=== PATIENT | male | born 1940 ===

== ENCOUNTER 2020-06-08 08:15 | Observation (INO) ==
--- NOTE | 2020-05-10 10:25 | Anesthesiology Consultation ---
Date of Service May 10, 2020 Assessment & Plan (1) Encounter for pre-operative examination: COVID Status: As of 05/10 assessment, patient denies travel to endemic area, known exposure/sick contacts, or symptoms of COVID19. Patient instructed that they and their household members must follow strict social distancing guidelines, wear a mask in public and avoid travel/events/gatherings for 14 days prior to surgery. Preoperative COVID19 testing to be completed prior to surgery per surgeon's arrangements (06/02). Patient made aware to self-isolate as much as possible between COVID testing and surgery. Patient is fully vaccinated. Chart Review Chart Review: Acceptable Risk for Surgery and Patient seen in Pre Admission Testing Teaching & Discussion Instructed NPO after midnight before surgery, except medications with 15 cc of water. Medication instructions provided according to the PAT guidelines. History Surgery Operation Date: 06/08/20 07:00 Proposed Procedures p Right Knee Arthroplasty Uni Compartment Versus - Ramana Meza MD s Total Knee Arthroplasty - Ramana Meza MD Height/Weight Height: 5 ft 11 in Weight: 81.8 kg Allergies Allergy/AdvReac Type Severity Reaction Status Date / Time No Known Allergies Allergy Verified 04/26/20 12:44 Medications Home Medications Medication Instructions Recorded Confirmed Last Taken No Known Home Medications 09/17/19 04/26/20 Unknown Past Medical History Medical History (Updated 05/10/20 @ 10:35 by Rj Richardson) BPH (benign prostatic hyperplasia) Right knee DJD Tremor B/L hands Exercise / Class Metabolic Activity III < 4 Walking/Shop/Light housework (Limited by knee pain, denies CP or SOB with ambulation) Past Family History Family History Other Parkinson disease Past Surgical History Surgical History History of prostate surgery TURP Hx of hernia repair Past Anesthesia History No Hx of Anesthesia Complications and No Family Hx of Anesthesia Complications History of PONV No Hx of PONV and No Hx of Motion Sickness Social History Smoking Status: Never smoker Do You Dip or Chew Tobacco: No Hx Alcohol Use: Yes Alcohol type: beer alcohol intake frequency: a few times a month Hx Substance Use: No substance use type: does not use Review of Systems Pt denies any recent chest pain, shortness of breath, palpitations, cough, fever, URI. +occasional GERD Physical Exam Vital Signs BP: 163/83. Pt reports anxiety. P: 69bpm SPO2: 96% RA T: 98.1 F R: 12 ENMT Mouth: + dentures (partial upper); no chipped teeth and no loose teeth Thyromental Distance: > or= 3.5 Finger Breadths Mallampati Class: II Neck normal visual inspection; neck extension not limited Respiratory normal respiratory effort, lungs clear to auscultation Cardiovascular RRR, no murmur, no edema Vessels: no carotid bruit Musculoskeletal R knee in brace Neurologic Motor/Sensory: + tremor (B/L hands) Testing Laboratory Results 05/10/20 10:40 05/10/20 10:40 PT 10.4 Seconds (9.0-12.0) 05/10/20 10:40 INR 1.0 (0.9-1.1) 05/10/20 10:40 APTT 27.6 Seconds (21.0-31.0) 05/10/20 10:40 Blood Type O Positive 05/10/20 10:40 Antibody Screen NEGATIVE 05/10/20 10:40 Electrocardiogram Date: 05/10/20 Findings: + SB @ (59bpm) Voltage criteria for LVH. Chest X-Ray Date: 05/10/20 Findings: + NAD Stress Test Date: 01/23/18 Type: DSE No chest pain. Normal hemodynamics with dobutamine. EKG at rest normal. EKG during dobutamine infusion, no ST depression or elevation. Normal wall motion at rest with improved contractility during dobutamine infusion and normal wall motion during recovery. Impression: Dobutamine stress echo negative for ischemia or infarction.
[2020-05-10 11:02] LABS: Basophils # (auto) 0.03 K/uL (0-0.2); Basophils % (auto) 0.4 %; Eosinophils # (auto) 0.12 K/uL (0-0.5); Eosinophils % (auto) 1.7 %; Hematocrit (blood only) 45.1 % (42-52); Hemoglobin 15.2 g/dL (14.0-18.0); Immature Granulocytes # (auto) 0.01 K/uL (0.00-0.02); Immature Granulocytes % (auto) 0.1 %; Lymphocytes # (auto) 1.55 K/uL (1.2-3.4); Lymphocytes % (auto) 21.6 %; Mean Corpuscular Hemoglobin 30.5 pg (25-34); Mean Corpuscular Hgb Conc 33.7 g/dL (32-36); Mean Corpuscular Volume 90.4 fL (80-100); Monocytes # (auto) 0.87 K/uL (0.11-0.59); Monocytes % (auto) 12.1 %; Neutrophils % (auto) 64.1 %; Platelet Count 251 K/uL (130-400); RDW Coefficient of Variation 13.1 % (11.5-14.5); Red Blood Count 4.99 M/uL (4.7-6.1); White Blood Count 7.18 K/uL (4.8-10.8)
[2020-05-10 11:23] LABS: Partial Thromboplastin Time 27.6 Seconds (21.0-31.0); Prothrombin Time 10.4 Seconds (9.0-12.0)
--- NOTE | 2020-05-10 11:30 | XRay Report ---
XR chest Pre-admission PA/Lat CLINICAL HISTORY: Preoperative evaluation. COMPARISON STUDY: No previous studies for comparison. FINDINGS: Lung volumes are normal. Lungs are clear. There is no pneumothorax or pleural effusion. Car diac size is normal. Mediastinal contours are normal. There is no evidence for pulmonary edema. IMPRESSION: No acute cardiopulmonary findings. ACT 112: Negative or not required by law. Electronically signed by: Blair Haddad M.D. 05/10/2020 11:29 AM
[2020-05-10 11:33] LABS: BUN Creatinine Ratio 26.1 (10-20); Calcium 9.1 mg/dl (8.5-10.1); Creatinine Clr Calc Pharmacy 67.2 ml/min; Est GFR (African American) 87.9; Est GFR (Non-African American) 75.8; Potassium 4.4 mmol/L (3.5-5.1)
--- NOTE | 2020-05-11 06:24 | Electrocardiogram Report ---
Test Reason : Blood Pressure : / mmHG Vent. Rate : 059 BPM Atrial Rate : 059 BPM P-R Int : 176 ms QRS Dur : 096 ms QT Int : 422 ms P-R-T Axes : 074 079 071 degrees QTc Int : 417 ms Sinus bradycardia Voltage criteria for left ventricular hypertrophy Abnormal ECG No previous ECGs available Confirmed by Boo Null ([id number]) on 05/11/2020 6:24:32 AM Referred By: Ramana Meza Confirmed By:Boo Null
--- NOTE | 2020-06-03 21:28 | History and Physical Report ---
DATE OF ADMISSION: 06/08/2020 CHIEF COMPLAINT: Right medial knee pain. HISTORY OF PRESENT ILLNESS: The patient is an 80-year-old gentleman from [place] who presents for treatment of his right knee. He has got about a 9-10 year history of right medial-sided knee pain that has gotten worse over time. He relates as a result of an injury back in 2011 with a twisting episode. He has had some injections, which some helped and some did not. Steroid shots helped a little bit. The gel shot did not help at all. He has been through therapy without much improvement. Pain is all medial. He cannot walk any significant distance due to the pain. No groin pain. He would like to have his knee fixed. PAST MEDICAL HISTORY: 1. Arthritis. 2. BPH. PAST SURGICAL HISTORY: Includes, 1. Prostate surgery. 2. Herniorrhaphy. ALLERGIES: None. CURRENT MEDICATIONS: None. SOCIAL HISTORY: An 80-year-old male. He is . Lives in [place]. Does not smoke. Two drinks per week. FAMILY HISTORY: Noncontributory. REVIEW OF SYSTEMS: Negative for diabetes, neurologic problem, vascular problem, bleeding disorders. No groin pain. No fevers, no weight loss. No history of DVT or PE. PHYSICAL EXAMINATION: GENERAL: Shows a pleasant, tall middle-aged male. HEENT: Benign. NECK: Supple, no lymphadenopathy. LUNGS: Clear to auscultation. HEART: Has a regular rate and rhythm. ABDOMEN: Soft, nontender, nondistended. EXTREMITIES: Grossly neurovascularly intact except as follows: Examination of the right knee reveals the patient ambulates independently. He limps a little bit on the right leg. Walks a little bit with a shuffling gait. He has got slight varus alignment. He is tender over the medial joint line. Small knee effusion. Range of motion is 0-125. I do not detect any instability. Radha's negative. No pain with hip motion. X-RAYS: X-rays of the right knee were reviewed. It shows advanced right knee medial compartment DJD. He has got near complete loss of his medial joint space. With valgus stressing, the medial compartment opens up. ASSESSMENT: An 80-year-old male with advanced right knee medial compartment degenerative joint disease of 9 years' duration. He has failed conservative treatment. Pain is limiting him and he would like to have his knee fixed. PLAN: We talked about treatment. Based on his symptoms and exam and his x-rays, he is a good candidate for partial knee replacement. We will plan on proceeding with a partial knee replacement. If we get in there, it is too bad, we will do a full knee replacement. The risks and benefits of this procedure were explained to the patient including but not limited to DVT, PE, , infection, neurological injury, vascular injury, bleeding problem, pain, limited range of motion, stiffness, failure to relieve his symptoms, incomplete relief of symptoms, need for further surgery in the future, dislocation, and need for revision surgery. The patient understands and desires to proceed. Informed consent was obtained. As far as discharge plans, he is hoping to be discharged to home using [facility] home health program.
[~2020-06-08 08:15] MED LIST: ACETAMINOPHEN 500 MG TAB PO SCH; BUPIVACAINE 0.5 % 5 MG/1 ML PF 10ML VIAL ONE; BUPIVACAINE LIPOSOME/PF 266 MG, BUPIVACAINE/EPINEPHRINE 50 ML, SODIUM CHLORIDE 0.9% 30 ... INFIL SCH; EPINEPHrine INJ 1 MG/ML AMP ONE; FAMOTIDINE 20 MG TAB PO SCH; GABAPENTIN 300 MG CAP PO SCH; LR 500ML BOLUS, THEN 15ML/HR IV SCH; LR 60ML/HR IV SCH; METOCLOPRAMIDE HCL 10 MG TABLET PO SCH; ROPIVACAINE 0.5% 5 MG/ML 30 ML VIAL ONE; TRANEXAMIC ACID 1,000 MG **IV Intra-op IV SCH; ceFAZolin 2000MG 2,000 MG/15 ML SYR IV SCH
--- NOTE | 2020-06-08 09:04 | History & Physical Bridge Note ---
Date of Service June 08, 2020 History & Physical Bridge Note I have examined the patient, reviewed the History & Physical and in the interval since the performance of the History & Physical I have noted the following changes of clinical significance: no changes noted
[2020-06-08] MEDS ORDERED: fentaNYL citrate 100 MCG/2 ML VIAL ONE (09:58)
[2020-06-08] MEDS ORDERED: PROPOFOL IV EMULSION 10 MG/ML 20 ML VIAL IV ONE ×2 (09:58→12:57)
[2020-06-08] MEDS ORDERED: ONDANSETRON INJ 2 MG/ML 2 ML VIAL ONE (09:58)
[2020-06-08] MEDS ORDERED: MIDAZOLAM HCL 1 MG/ML 2ML VIAL ONE (09:58)
[2020-06-08] MEDS ORDERED: LIDOCAINE HCL 2% 2 ML VIAL/AMP(20MG/ML) INFIL ONE (09:58)
[2020-06-08] MEDS ORDERED: SODIUM CHLORIDE 0.9% PF 50 ML VIAL ONE (11:05)
[2020-06-08] MEDS ORDERED: BUPIVACAINE LIPOSOME 1.3% 266 MG/20 ML VIAL ONE (11:05)
[2020-06-08] MEDS ORDERED: BACITRACIN INJ 50,000 UNIT VIAL ONE (11:05)
[2020-06-08] MEDS ORDERED: BUPIVACAINE 0.25% 30 ML VIAL ONE (11:06)
[2020-06-08] MEDS ORDERED: EPINEPHrine INJ 1 MG/ML AMP ONE (11:06)
[2020-06-08] MEDS ORDERED: ePHEDrine sulfate 50 MG/ML AMP IV PRN (11:34)
[2020-06-08] MEDS ORDERED: ATROPINE SULFATE 0.1 MG/ML 10ML SYR IV PRN (11:34)
--- NOTE | 2020-06-08 13:39 | Operative Report ---
Post Operative Report Pre & Post Diagnosis Operation Date: 06/08/20 10:40 Pre-Op Diagnosis: Right Knee Degenerative Joint Disease; Knee Pain Post-Op Diagnosis: Right Knee Degenerative Joint Disease; Knee Pain I identified the patient and participated in the time-out.: Yes Procedure Operation Date: 06/08/20 10:40 Actual Procedures p Right Knee Uni Compartment Arthroplasty, Cemented(Right) - Ramana Meza MD Surgeon Ramana Meza MD Learning Support Specialist LUCÍA Jenkins Estimated Blood Loss 25 Findings Consistent with Post-Op Diagnosis Operative findings revealed extensive grade 4 [id number] disease the medial femoral condyle medial tibial plateau. Fairly minimal degenerative changes elsewhere. Moderate-sized joint effusion. Slight varus deformity to his knee. He had osteophytes of the medial femoral condyle. Fluids 1000 cc Specimens Right knee sent for pathology. Drains None. Anesthesia Type Spinal MAC Complications none Disposition Accompanied Patient To Recovery: No Disposition: Recovery Room Indications Patient is an 80-year-old gentleman whose had a several year history of increasing right knee pain discomfort become less responsive conservative care. X-rays reveal advanced medial compartment arthritis. Symptoms localized to the medial side of his knee. This was consistent with his x-rays. He elected proceed with surgical treatment. Considering his age and pain pattern and x- rays, I felt a partial knee replacement was most appropriate for this patient. Description of Procedure Operative implants consist of: 1. Biomet Villanueva size large femoral component. 2. Biomet Villanueva size D right tibial tray. 3. 4 mm mobile-bearing polyethylene insert. The patient was taken the operating room, identified, and placed in the operating table supine position protectors were properly padded. IV antibiotics brought by anesthesia team. A spinal anesthetic and abductor canal block had provided holding area. A Glasgow catheter was placed in sterile fashion a right thigh turn was then placed in the right lower extremities and prepped draped in usual sterile fashion. The right leg was elevated exsanguinated with use of an Esmarch and tourniquet placed at 300 mmHg. An anterior approach to the right knee was then performed through a longitudinal incision beginning at the superior medial pole the patella and extending just medial to the tibial tubercle. Sharp dissection was carried through subcutaneous tissue down the extensor mechanism. A medial parapatellar arthrotomy incision was made. Some subperiosteal dissection was carried out medially. The fat pad was resected. I then examined the knee. The ACL was intact. I did remove some osteophytes from the intercondylar eminence area. I examined the lateral and patellofemoral compartments and they were quite well preserved. We elected proceed with a partial knee replacement. The femur was sized to a size large. The spoon was placed. The tibial external alignment jig was then placed and attached to the size large femoral spoon. The tibial cutting guide was pinned in place. The proximal tibial cut was made. Tibia was sized to a size D. Attention drawn the femur. The distal femur was then with a sharp drill. The IM silvano was placed. The femoral template was placed and attached to the IM silvano. The holes were drilled word drilled for the femoral component. Posterior cutting guide was placed and posterior cut was made. The 0 spigot was placed in the distal femur was milled. The medial meniscus was excised. I then trialed the knee and the 4 feeler gauge fit appropriate in both flexion and extension. We did not need to do any further milling of the femur. The femoral posterior osteophyte guiding with guide was placed in the posterior osteophyte was removed. The anterior femur was milled for the anterior flange of the femoral component. The posterior osteophyte was then removed. The cement drill was used to create holes in the distal femur for cement interdigitation. The tibial tray was pinned in place and the toothbrush blade saw was used to prepare the proximal tibia for the tibial component. We then irrigated the knee. We then trialed the knee in the forefoot implant fit appropriately in flexion extension. We elect to place these implants. A single batch of Palacos G cement was mixed. I irrigated the wound extensively and dried it. A size right medial D tibial tray was cemented in position foll owed by a large femoral component. A 4 feeler gauge was placed the knee was brought out into 30 degrees short of extension. All extraneous cement was removed. Once cement was hardened we trialed the knee again and the 4 implants appropriately. The for implant was placed. Tracked nicely. The knee felt well balanced. Attention drawn toward closing. The wound was irrigated with copious amounts of pulsatile lavage solution. I did inject locally with 100 cc of combination of 20 cc of Exparel, 30 cc normal saline, 50 cc of quarter percent Marcaine with epinephrine. Patient did receive 1 g tranexamic acid. The tourniquet was then let down for tourniquet time was 64 minutes. Hemostasis assured use electrocautery. I irrigated the wound again. The extensor mechanism closed with #1 Vicryl suture in a [id number] fashion. The extensor mechanism checked and found to be intact and the subcutaneous tissue then closed with 2 Dexon suture buried nerve fascia skin was closed skin blade. Leg was then cleaned and dried a sterile dressing composed Xeroform, 4 x 4's, sterile cast padding, Samy bandage were applied. Patient then transferred to the recovery room in stable condition. Patient tolerated procedure well and there were no complications. Felice Jenkins, my physician medicine assistant, was present for the entire procedure. His assistance was essential and required for appropriate patient positioning, prepping and draping, surgical exposure, performing the technical details of the operation, placement the implants, closure of the wound, and placement of the sterile bandage. I attest to the content of the Intraoperative Record and any orders documented therein. Any exceptions are noted below.
--- NOTE | 2020-06-08 13:52 | XRay Report ---
RIGHT KNEE 2 VIEWS History: Right knee unicondylar prosthesis. Degenerative arthritis. Postop. FINDINGS: The patient is status post right medial unicondylar prosthesis. The hardware is intact. No fracture or dislocation. Skin blade are in place. IMPRESSION: Right knee medial unicondylar prosthesis. No evidence for hardware complication. ACT 112: Negative or not required by law. Electronically signed by: Aren Elizabeth M.D. 06/08/2020 1:51 PM
--- NOTE | 2020-06-08 14:04 | Anesthesiology Progress Note ---
Date of Service June 08, 2020 Anesthesia Post Procedure Vital Signs Vital Signs: Temp Pulse Pulse Resp BP BP Pulse Ox 06/08/20 13:55 60 14 142/60 H 95 06/08/20 13:45 63 16 134/74 98 06/08/20 13:35 61 15 113/73 97 06/08/20 13:26 36.1 C L 66 16 141/73 H 99 06/08/20 08:55 36.5 C 70 20 172/96 H 94 Transfer of Care Handoff Completed per policy Notes Mental Status: alert / awake / arousable Patient Amnestic to Procedure: Yes Nausea / Vomiting: adequately controlled Pain: adequately controlled Airway Patency, RR, SpO2: stable & adequate BP & HR: stable & adequate Hydration State: stable & adequate Neuraxial Anesthesia: was administered and sensory block is resolving Anesthetic Complications: no major complications apparent
[2020-06-08] MEDS ORDERED: ALUMINUM/MAGNESIUM SUSP 30 ML UDC PO PRN (15:21)
[2020-06-08] MEDS ORDERED: TAMSULOSIN HCL 0.4 MG CAP PO PRN (15:21)
[2020-06-08] MEDS ORDERED: MAGNESIUM HYDROXIDE SUSP 30 ML UDC PO PRN (15:21)
[2020-06-08] MEDS ORDERED: HYDROmorphone INJ 0.5 MG/0.5 ML SYR IV PRN (15:21)
[2020-06-08] MEDS ORDERED: METOCLOPRAMIDE HCL INJ 5 MG/ML 2 ML VIAL IV PRN (15:21)
[2020-06-08] MEDS ORDERED: NALOXONE HCL 0.4 MG/1 ML VIAL/CARP IV PRN (15:21)
[2020-06-08] MEDS ORDERED: bisacodyL 10 MG SUPP PR PRN (15:21)
[2020-06-08] MEDS ORDERED: ONDANSETRON INJ 2 MG/ML 2 ML VIAL IV PRN (15:21)
[2020-06-08] MEDS ORDERED: traMADol HCL 50 MG TABLET PO PRN (15:21)
[2020-06-08] MEDS: SODIUM CHLORIDE 0.9% 1000ML 1,000 ML IV SCH (16:10)
[2020-06-08] MEDS: ACETAMINOPHEN 500 MG TAB PO SCH (18:15)
[2020-06-08] MEDS: KETOROLAC TROMETHAMINE 15 MG/ML VIAL IV SCH ×2 (18:16→23:11)
[2020-06-08] MEDS: DOCUSATE SODIUM 100 MG CAP PO SCH (20:21)
[2020-06-08] MEDS: ceFAZolin 2000MG 2,000 MG/15 ML SYR IV SCH (20:21)
[2020-06-08] MEDS: SENNA 8.6 MG TAB PO SCH (20:22)
[2020-06-08] MEDS: ASPIRIN 81 MG ECTAB PO SCH (20:22)
[2020-06-09] MEDS: SODIUM CHLORIDE 0.9% 1000ML 1,000 ML IV SCH (01:31)
[2020-06-09] MEDS: ACETAMINOPHEN 500 MG TAB PO SCH ×3 (01:31→17:24)
[2020-06-09] MEDS: ceFAZolin 2000MG 2,000 MG/15 ML SYR IV SCH (03:07)
[2020-06-09] MEDS: KETOROLAC TROMETHAMINE 15 MG/ML VIAL IV SCH ×4 (05:19→23:01)
[2020-06-09 07:14] LABS: Hematocrit (blood only) 42.1 % (42-52); Hemoglobin 14.6 g/dL (14.0-18.0); Mean Corpuscular Hemoglobin 30.7 pg (25-34); Mean Corpuscular Hgb Conc 34.7 g/dL (32-36); Mean Corpuscular Volume 88.4 fL (80-100); Mean Platelet Volume 9.3 fL (7.4-10.4); Platelet Count 247 K/uL (130-400); RDW Standard Deviation 41.9 fL (36.4-46.3); Red Blood Count 4.76 M/uL (4.7-6.1); White Blood Count 10.62 K/uL (4.8-10.8)
[2020-06-09 07:52] LABS: BUN Creatinine Ratio 16.4 (10-20); Calcium 8.6 mg/dl (8.5-10.1); Creatinine Clr Calc Pharmacy 66.1 ml/min; Est GFR (African American) 87.3; Est GFR (Non-African American) 75.3; Potassium 4.2 mmol/L (3.5-5.1)
[2020-06-09] MEDS ORDERED: dexAMETHasone 4 MG TAB PO SCH (08:00)
[2020-06-09] MEDS: DOCUSATE SODIUM 100 MG CAP PO SCH ×2 (08:39→20:25)
[2020-06-09] MEDS: MULTIVITAMIN TAB PO SCH (08:39)
[2020-06-09] MEDS: ASPIRIN 81 MG ECTAB PO SCH ×2 (08:39→20:26)
--- NOTE | 2020-06-09 10:19 | Progress Notes ---
DATE: 06/09/2020 SUBJECTIVE: An 80-year-old gentleman postop day 1 from a right partial knee replacement. He is doing pretty well. Denies any pain. No chest pain or shortness of breath. Not feeling dizzy or lightheaded. OBJECTIVE: VITAL SIGNS: Temperature 37.0. Vital signs stable. GENERAL: Shows a pleasant elderly male. He is lying in bed, looks reasonably comfortable this morning. EXTREMITIES: Examination of the right leg reveals it to be well aligned. Dressing is clean, dry, and intact. He can dorsiflex and plantarflex his foot appropriately. LABORATORY DATA: Hemoglobin 14.6. Hematocrit 42.1. Electrolytes are stable. ASSESSMENT: An 80-year-old gentleman postop day 1 from a partial knee replacement, doing pretty well. Pain is controlled. He is neurologically intact. PLAN: 1. DVT prophylaxis including thigh-high TEDs, SCDs, and aspirin twice a day. 2. PT/OT. Weight bear as tolerated. Right total knee protocol. 3. Pain control, doing well with current pain regimen. 4. Disposition: Plan is to discharge him to home with some home health after therapy likely later today.
[2020-06-09] MEDS: SENNA 8.6 MG TAB PO SCH (20:26)
[2020-06-10] MEDS: ACETAMINOPHEN 500 MG TAB PO SCH ×2 (01:06→10:48)
[2020-06-10] MEDS: KETOROLAC TROMETHAMINE 15 MG/ML VIAL IV SCH ×2 (05:07→12:55)
[2020-06-10] MEDS: ASPIRIN 81 MG ECTAB PO SCH (07:58)
[2020-06-10] MEDS: MULTIVITAMIN TAB PO SCH (07:58)
[2020-06-10] MEDS: DOCUSATE SODIUM 100 MG CAP PO SCH (07:58)
--- NOTE | 2020-06-10 09:14 | Progress Notes ---
DATE: 06/10/2020 SUBJECTIVE: An 80-year-old gentleman postop day 2 from a right partial knee replacement. He is doing okay. He did not do real well in therapy and they wanted him to go to rehab. He is amenable to this. No other complaints. No chest pain or shortness of breath. Denies any new complaints. OBJECTIVE: VITAL SIGNS: Temperature is 36.9. Vital signs stable. GENERAL: Shows a pleasant, elderly male. I had to wake him this morning. He is awake, alert and oriented. EXTREMITIES: Examination of the right knee reveals the dressing to be clean, dry and intact. Just a trace bit of bloody drainage. Calf is soft and supple. He can do a straight leg raise. He is neurologically intact. ASSESSMENT: An 80-year-old gentleman postoperative day 2 from a partial knee replacement, doing okay. He did not do real well in therapy. Family wants him to go to rehabilitation. PLAN: 1. DVT prophylaxis including thigh-high TEDs, SCDs, and aspirin twice a day. 2. PT/OT. Weight bear as tolerated. Right total knee protocol. 3. Pain control, doing okay with current pain regimen. 4. Disposition: Plan to discharge to rehab later today if accepted and approved.
--- NOTE | 2020-06-17 06:35 | Discharge Summary ---
Date of Service June 17, 2020 Discharge Data Procedures Performed Operation Date: 06/08/20 10:40 Actual Procedures p Right Knee Uni Compartment Arthroplasty, Cemented(Right) - Ramana Meza MD Hospital Course (1) Status post right partial knee replacement: This patient is a 80 year old male admitted on 06/08/20 and underwent unicompartmental knee arthroplasty. He tolerated the procedure well and there were no complications. Transferred to the PACU post op and later to the orthopedic floor for further care. He was given ancef for antibiotic prophylaxis. He was also given ED stockings, SCDs, and aspirin for DVT prophylaxis. Vital signs were monitored during his hospital stay and remained stable. Did not require any blood transfusions. There were no complications during his hospital stay. By post op day #2 the patient was tolerating a regular diet, pain was reasonably controlled with oral pain medicine, and he was participating in physical therapy. However, he did not do very well with therapy and rehab was recommended. On post op day #2 the patient was discharged to a rehab facility. He was given printed discharge instructions including prescriptions for extra strength tylenol, aspirin, and tramadol. Continue physical therapy, weight bearing as tolerated. Continue ED stockings. Follow up approximately 2 weeks post op or sooner if there are problems or concerns. Coding Level of Care Code None Diagnoses Status post right partial knee replacement Z96.651
--- NOTE | 2020-06-25 10:57 | Coding Query ---
A supporting diagnosis is required for the test/procedure performed on this patient in order for us to be reimbursed by the patient's insurance. Please provide a supporting diagnosis for the following test/procedure listed below next to the test name along with your signature. *If there is no additional diagnosis for this patient that would support the following test/procedure please document that below next to the test/procedure. Test(s)/Procedure(s) that require a supporting diagnosis: * VITAMIN D, 25-HYDROXY DIAGNOSIS:Osteoporosis * HEMOGLOBIN A1C DIAGNOSIS:Assess for Diabetes Provider Signature: Date: Thank you Mary Gonzalez [facility] Information Management Once completed, please kindly fax back to [phone] For questions please call [phone] [facility]
== END 2020-06-10 14:36 ==
LOC: ASU 08:15 → 3E 08:15
DX: M17.11 Unilateral primary osteoarthritis, right knee